=== PATIENT | female | born 1970 | race Caucasian/White ===

== ENCOUNTER → 2017-06-02 | Outpatient (CLI) | payer BC, OTHER ==
--- NOTE | ~2017-06-02 | US17 ---
[facility] A Service of [facility] RADIOLOGY TEXT RESULTS PATIENT: DINH FRAGOSO LOCATION: [facility] : [birth year] UNIT #: [id number] AGE: [address]: TAWANA EDGE MD SEX: F ORDER DR: [id number] [facility] [address] [place], [place] [address] [id number] O MR#: [id number] Acc #: [id number] NAME: DINH FRAGOSO : 1970 SEX: F STUDY DATE/TIME: 06/02/2017 9:51 UNIT: [facility] ROOM: STUDY DESCRIPTION: US Breast Bilateral Attending Physician: Tawana Edge M.D. Referring Physician: Tawana Edge M.D. Ordering Physician: Tawana Edge M.D. Primary Care Physician: Tawana Edge M.D. MEDICAL IMAGING REPORT This report is preliminary unless electronic signature is present EXAM Bilateral breast ultrasound, 06/02 HISTORY Intermittent bilateral breast nodules and pain over the last three years. FINDINGS For a full report, please see the mammogram report dated 06/02/2017. Patients over the age of 40 are entered into a reminder system with target due date for the next mammogram. A result letter will also be sent to the patient. BIRADS: 3 Probably Benign Finding; Short interval follow-up suggested Dictated by... Jose Guadalupe Smith Jr., M.D. THIS IS AN ELECTRONICALLY VERIFIED REPORT Jose Guadalupe Smith Jr., M.D. at 06/03/2017 7:19 AM DEANNA/devon TD: 06/02/2017 17:31 JOB #: [id number] MEDICAL IMAGING REPORT Page 1 of 1 COPY
--- NOTE | ~2017-06-02 | MY26 ---
[facility] A Service of [facility] RADIOLOGY TEXT RESULTS PATIENT: DINH FRAGOSO LOCATION: [facility] : 70 UNIT #: [id number] AGE: [address]: TAWANA EDGE MD SEX: F ORDER DR: [id number] [facility] [address] [place], [place] [address] [id number] O MR#: [id number] Acc #: [id number] NAME: DINH FRAGOSO : 1970 SEX: F STUDY DATE/TIME: 06/02/2017 9:24 UNIT: [facility] ROOM: STUDY DESCRIPTION: [facility] W/ CAD BILAT Attending Physician: Tawana Edge M.D. Referring Physician: Tawana Edge M.D. Ordering Physician: Tawana Edge M.D. Primary Care Physician: Tawana Edge M.D. MEDICAL IMAGING REPORT This report is preliminary unless electronic signature is present EXAM Diagnostic mammogram, 06/02 HISTORY 46-year-old with no personal or family history of breast cancer. She reports intermittent nodularity in both breasts over the last three years with some pain. FINDINGS Digital CC, MLO, ML, and spot compression CC views of both breasts were obtained. Study is reviewed with an FDA-approved CAD device. This is a baseline study. Breast parenchyma shows scattered fibroglandular densities. No dominant masses or suspicious microcalcifications are seen. There are a few scattered benign calcifications in both breasts. Ultrasound of both breasts was performed in the area of concern indicated by the patient. On the right side, at 10 o'clock about 11.0 cm from the nipple, there is an ovoid circumscribed slightly hypoechoic nodule measuring up to 7.0 mm in greatest dimension. There is a similar appearing smaller lesion at 10 o'clock 11.0 cm from the nipple measuring up to 5.0 mm. These are probably small benign fibroadenomas or potentially even lymph nodes. Six month follow-up ultrasound of these two lesions is recommended. On the left side, ultrasound demonstrates a simple cyst measuring up to 11.0 mm in size at the 3 o'clock position about 10.0 cm from the nipple. Findings and recommendations were discussed with the patient at the time of her examination today. [facility] A Service of [facility] RADIOLOGY TEXT RESULTS PATIENT: DINH FRAGOSO LOCATION: [facility] : 70 UNIT #: [id number] AGE: [address]: TAWANA EDGE MD SEX: F ORDER DR: 1. Benign mammogram. 2. Benign cyst in the left breast at 3 o'clock. 3. Two probably benign nodules in the right breast at 10 o'clock by ultrasound. Ultrasound follow-up of the two right breast nodules is recommended in six months. Patients over the age of 40 are entered into a reminder system with target due date for the next mammogram. A result letter will also be sent to the patient. BIRADS: 3 Probably Benign Finding; Short interval follow-up suggested Dictated by... Jose Guadalupe Smtih Jr., M.D. THIS IS AN ELECTRONICALLY VERIFIED REPORT Jose Guadalupe Smith Jr., M.D. at 06/03/2017 7:19 AM DEANNA/devon TD: 06/02/2017 17:25 JOB #: [id number] MEDICAL IMAGING REPORT Page 1 of 1 COPY
== END | disposition home or self-care (01) ==
LOC: CMAM 09:00
DX: N63 Unspecified lump in breast (principal); N60.02 Solitary cyst of left breast
CPT/HCPCS: 76641; G0204